=== PATIENT | female | born 1980 | race Asian ===

== ENCOUNTER 2016-09-04 15:28 | Emergency (ER) | payer OTHER ==
[2016-09-04 15:45] VITALS: TEMP 97.6; BMI 24.4
[2016-09-04] MEDS ORDERED: SODIUM CHLORIDE 1,000 ML IV STA (16:09)
[2016-09-04] MEDS ORDERED: ONDANSETRON 4 MG/2 ML VIAL IVPUSH ONE (16:09)
[2016-09-04] MEDS ORDERED: HYDROmorphone HCL CARPU-JECT 2 MG/1 ML DISP.SYRIN IVPUSH ONE (16:09)
--- NOTE | 2016-09-04 16:09 | PDOC ---
History of Present Illness - General History Source: Patient Exam Limitations: No Limitations - History of Present Illness Initial Comments: 09/04/16 16:58 The patient is a 36 year old female with no significant PMHx who presents to the ED with severe diffuse abdominal and buttock pain for 5 days. The patient had a Thai butt lift, where she transferred fat from her abdomen and injected it into her buttocks. 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 She felt slight SOB for 4 days and chest tightness for 2 days. She took her pulse at work today and it was in the 120s so she came to the ED. She states the pain is worse with lying down or walking. She reports an associated rash on her abdomen. She was taking Vicodin but stopped due to constipation. She is now taking Tylenol, antibiotics, and Arnicare. She denies blood clots in the past. She has an IUD and is a social smoker. Her last cigarette was 2 weeks ago. <Cinthya Rendon - Last Filed: 09/04/16 18:27> <Freddy Swenson - Last Filed: 09/04/16 18:50> - General Chief Complaint: Shortness of Breath Stated Complaint: (POST-OP) SOB Time Seen by Provider: 09/04/16 15:58 Past History <Cinthya Rendon - Last Filed: 09/04/16 18:27> - Past Medical History Other medical history: denies - Immunization History Immunization Up to Date: Yes - Psycho/Social/Smoking Cessation Hx Suicidal Ideation: No Smoking History: Current some day smoker Information on smoking cessation initiated: No Hx Alcohol Use: No Drug/Substance Use Hx: No <Freddy Swenson - Last Filed: 09/04/16 18:50> - Past Medical History Allergies/Adverse Reactions: Allergies Allergy/AdvReac Type Severity Reaction Status Date / Time No Known Allergies Allergy Verified 09/04/16 15:39 Review of Systems - Review of Systems Able to Perform ROS?: Yes Comments:: 09/04/16 16:58 GENERAL/CONSTITUTIONAL: No fever or chills. No weakness. HEAD, EYES, EARS, NOSE AND THROAT: No change in vision. No ear pain or discharge. No sore throat. CARDIOVASCULAR: (+) SOB. No chest pain. RESPIRATORY: No cough, wheezing, or hemoptysis. GASTROINTESTINAL: (+) abdominal pain. No nausea, vomiting, diarrhea or constipation. GENITOURINARY: No dysuria, frequency, or change in urination. MUSCULOSKELETAL: (+) buttocks pain. No joint or muscle swelling or pain. No neck or back pain. SKIN: (+) abdominal rash NEUROLOGIC: No headache, vertigo, loss of consciousness, or change in strength/ sensation. ENDOCRINE: No increased thirst. No abnormal weight change. HEMATOLOGIC/LYMPHATIC: No anemia, easy bleeding, or history of blood clots. ALLERGIC/IMMUNOLOGIC: No hives or skin allergy. <Cinthya Rendon - Last Filed: 09/04/16 18:27> *Physical Exam - Vital Signs Last Vital Signs Temp Pulse Resp BP Pulse Ox 97.6 F 130 H 26 H 116/65 100 09/04/16 15:39 09/04/16 15:39 09/04/16 15:39 09/04/16 15:39 09/04/16 15:39 - Physical Exam Comments: 09/04/16 16:58 GENERAL: Awake, alert, and fully oriented, in no acute distress HEAD: No signs of trauma EYES: PERRLA, EOMI, sclera anicteric, conjunctiva clear ENT: Auricles normal inspection, hearing grossly normal, nares patent, oropharynx clear without exudates. Moist mucosa NECK: Normal ROM, supple, no lymphadenopathy, JVD, or masses LUNGS: Breath sounds equal, clear to auscultation bilaterally. No wheezes, and no crackles HEART: Tachycardic rate and regular rhythm, normal S1 and S2, no murmurs, rubs or gallops ABDOMEN: Diffuse bruising on abdomen, most significant in LLQ and RLQ. Soft, normoactive bowel sounds. No masses EXTREMITIES: Normal range of motion, no edema. No clubbing or cyanosis. No cords, erythema, or tenderness NEUROLOGICAL: Cranial nerves II through XII grossly intact. Normal speech, normal gait SKIN: Rash on upper abdomen. Warm, Dry, normal turgor, no lesions noted. <Cinthya Rendon - Last Filed: 09/04/16 18:27> - Vital Signs Last Vital Signs Temp Pulse Resp BP Pulse Ox 97.6 F 130 H 26 H 116/65 100 09/04/16 15:39 09/04/16 15:39 09/04/16 15:39 09/04/16 15:39 09/04/16 15:39 <Freddy Swenson - Last Filed: 09/04/16 18:50> Heart Score/ECG Review #1 09/04/16 18:27 Sinus tachycardia at 110 bpm. Possible left atrial enlargement. <Cinthya Rendon - Last Filed: 09/04/16 18:27> ED Treatment Course - LABORATORY CBC & Chemistry Diagram: 09/04/16 16:13 09/04/16 16:13 - ADDITIONAL ORDERS Additional order review: Laboratory Results 09/04/16 09/04/16 16:13 16:13 INR 1.03 D-Dimer 1105 H Serum , Qual Negative 09/04/16 16:13 RBC 3.39 L MCV 91.4 MCHC 32.9 RDW 14.8 MPV 7.2 L Neutrophils % 73.0 Lymphocytes % 18.0 Monocytes % 6.0 Eosinophils % 2.4 Basophils % 0.6 - Medications Given in the ED: ED Medications Discontinued Medications Generic Name Dose Route Start Last Admin Trade Name Rogerq PRN Reason Stop Dose Admin Hydromorphone HCl 2 mg 09/04/16 16:09 09/04/16 16:33 Dilaudid Injection - IVPUSH 09/04/16 16:10 2 mg ONCE ONE Administration Ondansetron HCl 4 mg 09/04/16 16:09 09/04/16 16:29 Zofran Injection IVPUSH 09/04/16 16:10 4 mg ONCE ONE Administration <Cinthya Rendon - Last Filed: 09/04/16 18:27> - LABORATORY CBC & Chemistry Diagram: 09/04/16 16:13 09/04/16 16:13 <Freddy Swenson - Last Filed: 09/04/16 18:50> *DC/Admit/Observation/Transfer - Attestations Scribe Attestion: 09/04/16 17:09 Documentation prepared by Cinthya Rendon, acting as medical director/head team physician for Freddy Swenson DO. <Cinthya Rendon - Last Filed: 09/04/16 18:27> - Discharge Dispostion Admit: No - Attestations Physician Attestion: 09/04/16 16:08 I, Dr. Freddy Swenson, attest that this document has been prepared under my direction and personally reviewed by me in its entirety. I further attest, that it accurately reflects all work, treatment, procedures and medical decision -making performed by me. <Freddy Swenson - Last Filed: 09/04/16 18:50> Diagnosis at time of Disposition: Tachycardia, Anxiety - Discharge Dispostion Disposition: HOME Condition at time of disposition: Good - Referrals Referrals: Bret Conde MD [Primary Care Provider] - - Patient Instructions Printed Discharge Instructions: DI for Panic Disorder, DI for Tachycardia Additional Instructions: Follow up with your regular doctors. Return to us if any problems. No Pulmonary Embolus was seen on CT - Post Discharge Activity Work/School Note: Back to Work
[2016-09-04] MEDS ORDERED: HYDROmorphone HCL CARPU-JECT 2 MG/1 ML DISP.SYRIN ONE (16:19)
[2016-09-04 16:21] LABS: BASOPHIL 0.6 % (0-2.0); EOSINOPHIL 2.4 % (0-4.5); MCHC 32.9 g/dl (32.0-36.0); MEAN CELL VOLUME 91.4 fl (80-96); MEAN PLT VOLUME 7.2 fl (7.5-11.1); PLATELET COUNT 349 K/MM3 (134-434); RDW 14.8 % (11.6-15.6); WHITE BLOOD COUNT 9.6 K/mm3 (4.0-10.0)
[2016-09-04 16:40] LABS: INR 1.03 (0.82-1.09); PROTHROMBIN TIME (PATIENT) 11.3 SEC (9.98-11.88)
[2016-09-04 16:55] LABS: ALBUMIN 3.5 g/dl (3.4-5.0); ALK PHOS 36 U/L (45-117); ANION GAP 10 (8-16); BILIRUBIN,TOTAL 0.7 mg/dL (0.2-1.0); CALCIUM 8.8 mg/dL (8.5-10.1); CO2 24 mmol/L (21-32); CREATININE 0.6 mg/dL (0.55-1.02); GLUCOSE,RANDOM 91 mg/dL (74-106); SGPT/ALT 30 U/L (12-78); TOT PROT 7.3 g/dl (6.4-8.2)
[2016-09-04 16:58] LABS: SGOT/AST 31 U/L (15-37)
[2016-09-04 18:54] VITALS: BP 102/58; PULSE 127
--- NOTE | 2016-09-05 20:46 | EKG ---
Test Reason : Blood Pressure : / mmHG Vent. Rate : 110 BPM Atrial Rate : 110 BPM P-R Int : 144 ms QRS Dur : 080 ms QT Int : 332 ms P-R-T Axes : 072 050 033 degrees QTc Int : 449 ms SINUS TACHYCARDIA POSSIBLE LEFT ATRIAL ENLARGEMENT RSR' IN V2 BORDERLINE ECG NO PREVIOUS ECGS AVAILABLE REPEAT EKG IF CLINICALLY INDICATED Confirmed by LYNDSAY REBOLLEDO MD ([id number]) on 09/05/2016 8:46:19 PM Referred By: Confirmed By:LYNDSAY REBOLLEDO MD
== END 2016-09-04 19:01 | disposition home or self-care (01) ==
LOC: JER 15:28
PROC: 3E033NZ Introduction of Analgesics, Hypnotics, Sedatives into Peripheral Vein, Percutaneous Approach (ICD-10-PCS; principal; 2016-09-04)
PROC: 3E033GC Introduction of Other Therapeutic Substance into Peripheral Vein, Percutaneous Approach (ICD-10-PCS; 2016-09-04)
DX: F41.9 Anxiety disorder, unspecified (principal); G89.18 Other acute postprocedural pain; R00.0 Tachycardia, unspecified
CPT/HCPCS: 36415; 71275-TC; 80053; 84703; 85025; 85379; 85610; 93005; 93010; 99283-25